=== PATIENT | male | born 1940 | race Caucasian/White ===

== ENCOUNTER 2022-11-23 10:13 | Day surgery (SDC) | payer MEDICARE, BC ==
[2022-11-22 12:07] VITALS: BMI 29.0
[~2022-11-23 10:13] MED LIST: EPINEPHrine 0.3 MG in Ophthalmic Irrigation Solution 500 ML IRR SCH
[2022-11-23] MEDS ORDERED: fentaNYL 50 mcg/mL 1 mL Vial ONE (10:25)
[2022-11-23] MEDS ORDERED: Famotidine/PF 20 mg/2ml Vial ONE (10:25)
[2022-11-23] MEDS ORDERED: Cyclopentolate 1% Opth Drop 2 ML BOT ONE (10:42)
[2022-11-23] MEDS ORDERED: Phenylephrine 2.5% Ophth Soln 5 ML BOT ONE (10:42)
[2022-11-23] MEDS ORDERED: PHENYLEPHRINE-NS 100 MCG/ML 10 ML SYRINGE ONE (11:35)
[2022-11-23] MEDS ORDERED: Maxitrol 0.1% Opth Oint 3.5 GM TUBE ONE (11:35)
[2022-11-23] MEDS ORDERED: CEFAZOLIN 1 GM VIAL ONE (11:35)
[2022-11-23] MEDS ORDERED: Lidocaine 4% PF 5 ML AMP ONE (11:35)
[2022-11-23] MEDS ORDERED: Lidocaine 1% PF 5 ML VIAL ONE (11:35)
[2022-11-23] MEDS ORDERED: Triamcinolone 40 MG/ML VIAL ONE (11:35)
[2022-11-23] MEDS ORDERED: PROPOFOL 200 MG/20 ML VIAL ONE (11:35)
[2022-11-23] MEDS ORDERED: Ondansetron PF 4 MG/2 ML Vial ONE (11:35)
[2022-11-23] MEDS ORDERED: Bupivacaine 0.75% 10 ML VIAL ONE (11:35)
== END 2022-11-23 14:26 | disposition home or self-care (01) ==
LOC: SDC 10:13
PROVIDERS: ATTEND Ophthalmology Retina Specialist
PROC: 08RK3JZ Replacement of Left Lens with Synthetic Substitute, Percutaneous Approach (ICD-10-PCS; principal; 2022-11-23)
PROC: 08T53ZZ Resection of Left Vitreous, Percutaneous Approach (ICD-10-PCS; 2022-11-23)
PROC: 08QF3ZZ Repair Left Retina, Percutaneous Approach (ICD-10-PCS; 2022-11-23)
DX: T85.22XA Displacement of intraocular lens, initial encounter (principal); H43.392 Other vitreous opacities, left eye; Z79.899 Other long term (current) drug therapy; Z98.41 Cataract extraction status, right eye; Z98.42 Cataract extraction status, left eye; Y77.2 Prosthetic and other implants, materials and accessory ophthalmic devices associated with adverse incidents
CPT/HCPCS: J0171; J0690; J2405; J2704; J3010; J3301; J3490; S0028

== ENCOUNTER 2025-05-06 09:10 | Outpatient (CLI) | payer MEDICARE | END 2025-05-06 09:11 | disposition home or self-care (01) | LOC: SCSRAD 09:10 | PROVIDERS: ATTEND Family Medicine | DX: M51.16 Intervertebral disc disorders with radiculopathy, lumbar region (principal); M43.16 Spondylolisthesis, lumbar region; M43.9 Deforming dorsopathy, unspecified | CPT/HCPCS: 72120 ==